=== PATIENT | female | born 1990 | race Caucasian/White ===

== ENCOUNTER 2018-07-13 20:29 | Observation (INO) ==
[2018-07-13 21:26] LABS: Baso # (Auto) 0.1 th/mm3 (0.0-0.2); Eos # (Auto) 0.2 th/mm3 (0.0-0.4); Eos % (Auto) 2.3 % (0.0-4.0); Hematocrit 43.8 % (35.0-46.0); Hemoglobin 14.5 gm/dL (11.6-15.3); Lymph # (Auto) 3.2 th/mm3 (1.0-4.8); Mean Corpuscular Hemoglobin 25.1 pg (27.0-34.0); Mean Platelet Volume 8.4 fL (7.0-11.0); Mono # (Auto) 0.6 th/mm3 (0.0-0.9); Mono % (Auto) 5.6 % (0.0-8.0); Neut # (Auto) 6.5 th/mm3 (1.8-7.7); Neut % (Auto) 61.1 % (16.0-70.0); Platelet Count 415 th/mm3 (150-450); Red Blood Count 5.77 mil/mm3 (4.00-5.30); Red Cell Distribution Width 14.8 % (11.6-17.2); White Blood Count 10.6 th/mm3 (4.0-11.0)
--- NOTE | 2018-07-13 21:39 | XR ---
EXAM DATE: 07/13/2018 9:08 PM EDT AGE/SEX: 28 years / Female INDICATIONS: Chest pain CLINICAL DATA: This is the patient's initial encounter. Patient reports that signs and symptoms have been present for 3 days and indicates a pain score of 0/10. MEDICAL/SURGICAL HISTORY: None. None. COMPARISON: No prior exams available for comparison. FINDINGS: A single AP view of the chest demonstrates the lungs to be symmetrically aerated without evidence of mass, infiltrate or effusion. The cardiomediastinal contours are unremarkable. Osseous structures a re intact. CONCLUSION: Negative examination. Electronically signed by: Sudhakar Avila MD 07/13/2018 9:37 PM EDT
[2018-07-13 21:43] LABS: Activated Partial Thrombo Time 25.7 sec (24.3-30.1)
[2018-07-13 21:50] LABS: Alanine Aminotransferase 15 U/L (10-53); Albumin 3.6 g/dL (3.4-5.0); Anion Gap 5 meq/L (5-15); Aspartate Aminotransferase 17 U/L (15-37); Blood Urea Nitrogen 12 mg/dL (7-18); Calcium 8.7 mg/dL (8.5-10.1); Carbon Dioxide 29.6 meq/L (21.0-32.0); Chloride 106 meq/L (98-107); Glomerular Filtration Rate Greater Than 89 mL/min (>89); Glucose,Random 101 mg/dL (74-106); Potassium 3.9 meq/L (3.5-5.1); Sodium 141 meq/L (136-145)
[2018-07-13 21:54] LABS: Alkaline Phosphatase 98 U/L (45-117); Total Protein 8.2 g/dL (6.4-8.2)
[2018-07-13 21:56] LABS: Amphetamine Screen,Urine Neg (Neg); Barbiturate Screen,Urine Neg (Neg); Cannabinoid Screen,Urine Neg (Neg); Cocaine Screen,Urine Neg (Neg)
[2018-07-13 21:57] LABS: Creatine Kinase 90 U/L (26-192)
[2018-07-13 21:57] LABS: Opiate Screen,Urine Neg (Neg)
[2018-07-13 22:02] LABS: Thyroid Stimulating Hormone 2.54 uIU/mL (0.358-3.740)
--- NOTE | 2018-07-13 22:11 | ED ---
HPI General Chief complaint: Neuro Symptoms/Deficit Stated complaint: numbness on rt side of face Time Seen by Provider: 07/13/18 20:43 Source: patient Limitations: no limitations History of Present Illness HPI narrative: The patient is a 28 year old female who presents to the [facility] emergency department with a history of a headache that she reports began 3 days ago. The patient reports that the headache is present along the right side of the back of the head. She denies having any neck pain or stiffness. She reports that yesterday she then began to have pain in the right side of her jaw and difficulty opening and closing her mouth. She denies having any tooth pain. She denies having any swelling of her gums or drainage into her mouth. She denies having any known fevers. The patient additionally reports that yesterday she noticed having difficulty with numbness and tingling to her right hand while she was sewing. She reports that those symptoms seem to resolve. The patient reports that today in the afternoon she also began to have tingling sensations in her right leg. She denies having any numbness or tingling at this time. She denies having any weakness of her extremities. The patient does however report that this afternoon she began to have chest pain. The patient reports that the chest pain is in the center of her chest. The patient has difficulty describing the character of the pain. She reports having shortness of breath associated with it. She reports that it hurts worse with movement. On review of systems otherwise, the patient denies having any known cough, congestion, neck pain, abdominal pain, vomiting, diarrhea, urinary symptoms, vertigo, facial droop, difficulty with word finding ability, or vision changes. LMP: July 05, 2018. Related Data Home Medications Medication Instructions Recorded Confirmed No Known Home Medications 07/13/18 07/13/18 Allergies Allergy/AdvReac Type Severity Reaction Status Date / Time No Known Allergies Allergy Verified 07/13/18 20:40 Review of Systems ROS: all other systems reviewed are negative [facility] [place] Medical History Medical History Patient denies medical problems (Acute) Surgical History Surgical History No history of previous surgery (Acute) Social History Social History Substance History: No History of Abuse Second Hand Smoke Exposure: No Smoking Status: Never smoker How Often Do You Have a Drink Containing Alcohol: Never Recent Travel in [facility] within the Last 8 Weeks: No Recent Out of Country Travel within the Last 8 Weeks: No Immunization History Tetanus Immunization: Unsure Exam Const General: cooperative, no acute distress and well developed Nutritional Appearance: well nourished Orientation: alert, awake and oriented x3 HENMT Head: normocephalic and atraumatic Nose: no nasal discharge and no epistaxis Face and sinus: other (TTP on the right TMJ, Popping on palpation of the left TMJ with opening) Mouth: moist mucous membranes Throat: posterior oropharynx normal and uvula midline Eyes Sclera: normal sclerae Pupils: PERRL Neck Neck: trachea midline and no JVD Chest Chest: normal inspection of the chest and no tenderness Resp Effort & Inspection: no use of accessory muscles Auscultation: clear to auscultation bilaterally Cardio Rate: regular rate Rhythm: regular rhythm Heart Sounds: no murmurs GI Inspection: non-distended Palpation: soft, no hepatosplenomegaly and nontender Skin General: dry skin (warm) Neuro General: alert, awake, oriented x3 and CN's II-XI intact bilaterally Cranial Nerves: CN's II-XI intact bilaterally Speech: speech normal Motor: strength 5/5 throughout and no movement abnormalities noted Sensory Exam: no sensory deficits noted Extrem General: normal to inspection (2+ pulses in all 4 extremities), no calf tenderness, no clubbing, no cyanosis and no edema Psych Mood: congruent mood Affect: normal affect Judgment: judgment good Course Initial Documented Vital Signs Temperature 99.0 F 07/13/18 20:38 Pulse Rate 86 07/13/18 20:38 Respiratory Rate 18 07/13/18 20:38 Blood Pressure 131/84 07/13/18 20:38 Pulse Oximetry 100 07/13/18 20:38 Last Documented Vital Signs Temperature 97.9 F 07/14/18 00:55 Pulse Rate 65 07/14/18 00:55 Respiratory Rate 18 07/14/18 00:55 Blood Pressure 112/69 07/14/18 00:55 Pulse Oximetry 100 07/14/18 00:55 Medical Decision Making MDM Narrative Medical decision making narrative: During the course of the patient's emergency department visit, the patient's history, examination, and differential diagnosis were reviewed with the patient. The patient was placed on a cardiac rehabilitation program director with oximetry and frequent blood pressure monitoring. The patient had IV access obtained and blood work sent for analysis. A diagnostic evaluation was started regarding the pain, intermittent tingling sensations of her right upper and lower extremity, and chest pain. The patient was initially provided aspirin 324 mg p.o. x1, sublingual nitroglycerin x1. The patient's diagnostic evaluation is remarkable for a white count of 10.6, hemoglobin 14.5, platelets 415 with a normal differential, PT PTT within normal limits. Chemistry is unremarkable, cardiac enzymes within normal limits. Lipase is within normal limits. TSH is within normal limits. Urine drug screen is negative, chest x-ray shows no acute cardiopulmonary disease, CT scan of the brain shows no acute abnormality, CT scan of the C-spine shows no acute abnormality. The patient will be admitted to the chest pain center for rule out serial cardiac enzyme protocol followed by consideration of stress testing as the patient has no primary care physician available for follow-up. The patient's results were discussed with the patient, including the plan of care. I explained that further testing and/ or monitoring is indicated based on the patient's history, examination, and/ or laboratory findings. Therefore, I recommended admission for additional evaluation. The patient expressed understanding and was agreeable with this plan. The patient was admitted to the hospital in stable condition and sent to a bed under the care of the [facility]. Medical Screen Exam Complete: Yes Emergency Medical Condition: Yes Differential Diagnosis Differential Diagnosis: pulmonary embolism, versus Acute coronary syndrome, versus TMJ, versus TIA, versus CVA, versus electrolyte derangements, versus endocrine abnormality Medical Records Medical records reviewed: Yes I reviewed the patient's medical records. Lab Data Lab results reviewed: Yes I reviewed the patient's lab results. Result diagrams: 07/13/18 21:18 07/13/18 21:18 POC Results POC Urine Results Negative Lab Results 07/13/18 07/13/18 07/13/18 Range/Units :18 21:18 21:18 WBC 10.6 (4.0-11.0) th/mm3 RBC 5.77 H (4.00-5.30) mil/mm3 Hgb 14.5 (11.6-15.3) gm/dL Hct 43.8 (35.0-46.0) % MCV 76.0 L (80.0-100.0) fL MCH 25.1 L (27.0-34.0) pg MCHC 33.0 (32.0-36.0) % RDW 14.8 (11.6-17.2) % Plt Count 415 (150-450) th/mm3 MPV 8.4 (7.0-11.0) fL Neut % (Auto) 61.1 (16.0-70.0) % Lymph % (Auto) 30.0 (9.0-44.0) % [place] % (Auto) 5.6 (0.0-8.0) % Eos % (Auto) 2.3 (0.0-4.0) % Baso % (Auto) 1.0 (0.0-2.0) % Neut # (Auto) 6.5 (1.8-7.7) th/mm3 Lymph # (Auto) 3.2 (1.0-4.8) th/mm3 [place] # (Auto) 0.6 (0.0-0.9) th/mm3 Eos # (Auto) 0.2 (0.0-0.4) th/mm3 Baso # (Auto) 0.1 (0.0-0.2) th/mm3 WBC Differential . Differential Comment Auto diff final PT 10.0 (9.8-11.6) sec INR 1.0 Ratio APTT 25.7 (24.3-30.1) sec Sodium (136-145) meq/L Potassium (3.5-5.1) meq/L Chloride (98-107) meq/L Carbon Dioxide (21.0-32.0) meq/L Anion Gap (5-15) meq/L BUN (7-18) mg/dL Creatinine (0.50-1.00) mg/dL Estimated GFR (>89) mL/min Random Glucose (74-106) mg/dL Calcium (8.5-10.1) mg/dL Total Bilirubin (0.2-1.0) mg/dL AST (15-37) U/L ALT (10-53) U/L Alkaline Phosphatase (45-117) U/L Total Creatine Kinase (26-192) U/L Troponin I (0.02-0.05) ng/mL Total Protein (6.4-8.2) g/dL Albumin (3.4-5.0) g/dL Lipase 133 (73-393) U/L TSH 2.540 (0.358-3.740) uIU/mL Urine Opiates Screen (Neg) Ur Barbiturates Screen (Neg) Ur Amphetamines Screen (Neg) U Benzodiazepines Scrn (Neg) Urine Cocaine Screen (Neg) U Cannabinoids Screen (Neg) 07/13/18 07/13/18 07/14/18 Range/Units 21:18 21:30 00:25 WBC (4.0-11.0) th/mm3 RBC (4.00-5.30) mil/mm3 Hgb (11.6-15.3) gm/dL Hct (35.0-46.0) % MCV (80.0-100.0) fL MCH (27.0-34.0) pg MCHC (32.0-36.0) % RDW (11.6-17.2) % Plt Count (150-450) th/mm3 MPV (7.0-11.0) fL Neut % (Auto) (16.0-70.0) % Lymph % (Auto) (9.0-44.0) % [place] % (Auto) (0.0-8.0) % Eos % (Auto) (0.0-4.0) % Baso % (Auto) (0.0-2.0) % Neut # (Auto) (1.8-7.7) th/mm3 Lymph # (Auto) (1.0-4.8) th/mm3 [place] # (Auto) (0.0-0.9) th/mm3 Eos # (Auto) (0.0-0.4) th/mm3 Baso # (Auto) (0.0-0.2) th/mm3 WBC Differential Differential Comment PT (9.8-11.6) sec INR Ratio APTT (24.3-30.1) sec Sodium 141 (136-145) meq/L Potassium 3.9 (3.5-5.1) meq/L Chloride 106 (98-107) meq/L Carbon Dioxide 29.6 (21.0-32.0) meq/L Anion Gap 5 (5-15) meq/L BUN 12 (7-18) mg/dL Creatinine 0.67 (0.50-1.00) mg/dL Estimated GFR Greater than 89 (>89) mL/min Random Glucose 101 (74-106) mg/dL Calcium 8.7 (8.5-10.1) mg/dL Total Bilirubin 0.2 (0.2-1.0) mg/dL AST 17 (15-37) U/L ALT 15 (10-53) U/L Alkaline Phosphatase 98 (45-117) U/L Total Creatine Kinase 90 77 (26-192) U/L Troponin I Less than 0.02 L Less than 0.02 L (0.02-0.05) ng/mL Total Protein 8.2 (6.4-8.2) g/dL Albumin 3.6 (3.4-5.0) g/dL Lipase (73-393) U/L TSH (0.358-3.740) uIU/mL Urine Opiates Screen Neg (Neg) Ur Barbiturates Screen Neg (Neg) Ur Amphetamines Screen Neg (Neg) U Benzodiazepines Scrn Neg (Neg) Urine Cocaine Screen Neg (Neg) U Cannabinoids Screen Neg (Neg) Imaging Data Radiologist's impression: Cervical Spine CT 07/13/18 21:08 CONCLUSION: 1. No acute findings on cervical spine CT. Chest X-Ray 07/13/18 21:08 CONCLUSION: Negative examination. Head CT 07/13/18 21:08 CONCLUSION: 1. Negative CT Head non contrast. . ECG Data Attestation: I personally reviewed and interpreted this ECG as follows: Interpretation: The patient had a EKG done on arrival. The patient's EKG revealed no evidence of ST segment elevation. The patient was in a sinus rhythm with a normal rate. Discharge Plan Discharge Disposition Patient Disposition: 30 Still Patient Discharge Details Diagnosis: Chest pain, rule out acute myocardial infarction, Jaw pain Physicians Team ED Provider: Angie Rincon Primary Care Provider: Primary Care Taylor Clark Attending Provider: Martin Foster Discharge Interventions Interventions: ED Discharge Assessment Last Done: 07/14/18 00:51 Vital Signs Last Done: 07/13/18 23:46 Status ED Status: Left Department Discharge Information Discharge Date/Time: 07/14/18 00:51
--- NOTE | 2018-07-13 22:45 | CT ---
EXAM DATE: 07/13/2018 9:12 PM EDT AGE/SEX: 28 years / Female INDICATIONS: Headache, numbness to right side of face. CLINICAL DATA: This is the patient's initial encounter. Patient reports that signs and symptoms have been present for 1 day and indicates a pain score of 6/10. MEDICAL/SURGICAL HISTORY: None. None. RADIATION DOSE: 32.14 CTDI (mGy) COMPARISON: No prior exams available for comparison. TECHNIQUE: CT of the head without contrast. Using automated exposure control and adjustment of the mA and/or kV according to patient size, radiation dose was kept as low as reasonably achievable to ob tain optimal diagnostic quality images. DICOM format image data is available electronically for revi ew and comparison. FINDINGS: Cerebrum: The ventricles are normal for age. No evidence of midline shift, mass lesion, hemorrhage or acute infarction. No extraaxial fluid collections are seen. Posterior Fossa: The cerebellum and brainstem are intact. The 4th ventricle is midline. The cerebe llopontine angle is unremarkable. Extracranial: The visualized portion of the orbits is intact. Skull: The calvaria is intact. No evidence of skull fracture. CONCLUSION: 1. Negative CT Head non contrast. . Electronically signed by: Sudhakar Avila MD 07/13/2018 10:44 PM EDT
--- NOTE | 2018-07-13 23:00 | CT ---
EXAM DATE: 07/13/2018 9:12 PM EDT AGE/SEX: 28 years / Female INDICATIONS: Right sided facial numbness. CLINICAL DATA: This is the patient's initial encounter. Patient reports that signs and symptoms have been present for 1 day and indicates a pain score of 6/10. MEDICAL/SURGICAL HISTORY: None. None. RADIATION DOSE: 19.39 CTDI (mGy) COMPARISON: No prior exams available for comparison. TECHNIQUE: Contiguous axial images were obtained using helical multirow detector technique. The vol umetric data was post-processed with multiplanar reconstruction in oblique axial, sagittal, and coron al planes. Using automated exposure control and adjustment of the mA and/or kV according to patient s ize, radiation dose was kept as low as reasonably achievable to obtain optimal diagnostic quality patricio ges. DICOM format image data is available electronically for review and comparison. FINDINGS: There is no fracture or spondylolisthesis. No significant bony canal or foraminal stenosis. No prever tebral soft tissue swelling. CONCLUSION: 1. No acute findings on cervical spine CT. Electronically signed by: Sudhakar Avila MD 07/13/2018 10:58 PM EDT
[2018-07-13] MEDS ORDERED: Sod Chloride 0.9% Inj 1,000 ML IV.CONT SCH (23:30)
[2018-07-14] MEDS ORDERED: Acetaminophen 500 MG Tablet PO PRN (00:09)
[2018-07-14] MEDS ORDERED: Sod Chloride 0.9% Inj 1,000 ML IV.CONT SCH (00:15)
[2018-07-14 00:59] LABS: Creatine Kinase 77 U/L (26-192)
[2018-07-14 03:39] VITALS: PULSE 74
[2018-07-14 04:15] LABS: Creatine Kinase 75 U/L (26-192)
[2018-07-14 08:19] VITALS: BP 102/61; RESP 16; TEMP 98; O2SAT 96
--- NOTE | 2018-07-14 08:56 | P.HPCA ---
History of Present Illness Primary Care Physician: No Primary Care Physician Chief Complaint: Right jaw pain History of Present Illness: This is a 28-year-old Nepali-speaking female that presents to ED for evaluation of right-sided jaw pain. It has been going on for couple days, began while she was eating. Hurts to open and close her mouth. She also is complaining of numbness and tingling in her right hand while doing sewing, she mentioned this to the ER provider however cannot recall this and we discussed with her. Her history was obtained with [facility] system. She denies having chest discomfort. Denies any other type of pain other than to jaw pain. - Diagnosis (1) TMJ (sprain of temporomandibular joint) Review of Systems General: Patient denies fevers, chills, and recent travel. HEENT: Complains of right-sided jaw pain, worse when opening closing her mouth. Patient denies headache, sore throat, difficulty swallowing. Cardiovascular: Denies chest discomfort as mentioned above. Denies sensation of heart beating rapidly or irregularly. No syncope. Respiratory: Denies shortness of breath or inspirational chest discomfort. Denies coughing wheezing or hemoptysis. GI: Patient denies nausea, vomiting, diarrhea, abdominal pain, bloody stools. Musculoskeletal: Patient denies joint pain or edema. Denies calf pain or edema. Neurovascular: Patient denies numbness, tingling, weakness in extremities. Denies headache. Endocrine: Denies polyuria and polydipsia. Hematologic: Denies easy bruising. Skin: Denies rash or itching. PMFSH - History History Provided By: Family Member - Medical History Medical History: Medical History (Last Reviewed 07/13/18 @ 22:11 by Angie Rincon MD) Patient denies medical problems - Surgical History Surgical History: Surgical History (Last Reviewed 07/13/18 @ 22:11 by Angie Rincon MD) No history of previous surgery - Tobacco History Second Hand Smoke Exposure: No Smoking Status: Never smoker - Alcohol History How Often Do You Have a Drink Containing Alcohol: Never - Substance Use History Substance History: No History of Abuse - Travel History Recent Travel in the [place] Within the Last 8 Weeks: No Recent Travel Out of the Country Within the Last 8 Weeks: No - Immunization History Tetanus Immunization: Unsure Medications and Allergies Active Medications: Active Medications Acetaminophen (Tylenol) 500 mg PO Q4H PRN PRN Reason: HEADACHE Sodium Chloride (Ns Inj) 1,000 mls @ 100 mls/hr IV.CONT .Q10H KAROL Last Admin: 07/14/18 01:07 Dose: 100 mls/hr Sodium Chloride (Ns Inj) 1,000 mls @ 100 mls/hr IV.CONT .Q10H KAROL Last Admin: 07/14/18 01:23 Dose: Not Given Sodium Chloride (Ns Flush) 2 ml IV.FLUSH BID KAROL Sodium Chloride (Ns Flush) 2 ml IV.FLUSH PRN PRN PRN Reason: FLUSH AFTER USING IV ACCESS Allergies Allergy/AdvReac Type Severity Reaction Status Date / Time No Known Allergies Allergy Verified 07/13/18 20:40 Home Medications Medication Instructions Recorded Confirmed Type No Known Home Medications 07/13/18 07/13/18 History Exam Vital signs: Vital Signs 07/13/18 20:38 07/13/18 20:51 07/13/18 21:22 Temperature 99.0 F Pulse Rate 86 92 H 90 Respiratory Rate 18 17 Blood Pressure 131/84 125/82 Pulse Oximetry 100 100 07/13/18 23:46 07/14/18 00:55 07/14/18 03:38 Temperature 97.9 F 97.5 F L Pulse Rate 77 65 74 Respiratory Rate 17 18 20 Blood Pressure 135/98 H 112/69 97/56 L Pulse Oximetry 100 100 100 07/14/18 08:16 Temperature 98.0 F Pulse Rate 74 Respiratory Rate 16 Blood Pressure 102/61 Pulse Oximetry 96 Intake & Output 07/13/18 07/14/18 07/14/18 18:59 06:59 18:59 Weight 65.771 kg Other: # Voids 2 Weight On Admission 65.771 kg Narrative: GENERAL: This is a well-nourished, well-developed patient, in no apparent distress. Patient speaks in clear complete sentences. Patient is pleasant. There is pain with opening and closure of the mouth. Tenderness in palpating the right TMJ area. This is the discomfort that she has been having. HEENT: Head is atraumatic and normocephalic. Neck is supple without lymphadenopathy and trachea is midline. No JVD or carotid bruits. CARDIOVASCULAR: Regular rate and rhythm without murmurs, gallops, or rubs. RESPIRATORY: Clear to auscultation. Breath sounds equal bilaterally. No wheezes , rales, or rhonchi. Chest wall is nontender. No use of accessory muscles. GASTROINTESTINAL: Abdomen is nontender, nondistended. Abdomen soft. No obvious pulsatile mass or bruit. No CVA tenderness. Strong femoral pulses bilaterally. Normal bowel sounds in all quadrants. MUSCULOSKELETAL: Patient is moving upper and lower extremities freely. No calf tenderness or edema, no Homans sign. Strong pulses in upper and lower extremities. NEUROLOGICAL: Patient is alert and oriented. Cranial nerves 2-12 are grossly intact. No focal deficits and speech is clear. SKIN: No rash and turgor is normal. Results 07/13/18 21:07/13/18 21:18 Cardiac Enzymes 07/13/18 07/14/18 07/14/18 Range/Units : 00:25 02:52 AST 17 (15-37) U/L Troponin I Less than 0.02 L Less than 0.02 L Less than 0.02 L (0.02-0.05) ng/mL Coagulation 07/13/18 Range/Units 21:18 PT 10.0 (9.8-11.6) sec APTT 25.7 (24.3-30.1) sec CBC 07/13/18 Range/Units 21:18 WBC 10.6 (4.0-11.0) th/mm3 RBC 5.77 H (4.00-5.30) mil/mm3 Hgb 14.5 (11.6-15.3) gm/dL Hct 43.8 (35.0-46.0) % Plt Count 415 (150-450) th/mm3 Neut # (Auto) 6.5 (1.8-7.7) th/mm3 Lymph # (Auto) 3.2 (1.0-4.8) th/mm3 [place] # (Auto) 0.6 (0.0-0.9) th/mm3 Eos # (Auto) 0.2 (0.0-0.4) th/mm3 Baso # (Auto) 0.1 (0.0-0.2) th/mm3 Comprehensive Metabolic Panel 07/13/18 Range/Units 21:18 Sodium 141 (136-145) meq/L Potassium 3.9 (3.5-5.1) meq/L Chloride 106 (98-107) meq/L Carbon Dioxide 29.6 (21.0-32.0) meq/L BUN 12 (7-18) mg/dL Creatinine 0.67 (0.50-1.00) mg/dL Calcium 8.7 (8.5-10.1) mg/dL AST 17 (15-37) U/L ALT 15 (10-53) U/L Alkaline Phosphatase 98 (45-117) U/L Total Protein 8.2 (6.4-8.2) g/dL Albumin 3.6 (3.4-5.0) g/dL Intake and Output 07/13/18 07/14/18 07/14/18 22:59 06:59 14:59 Other: # Voids 2 Weight 66 kg 65.771 kg Weight On Admission 65.771 kg - Imaging and Cardiology Imaging: Impressions Cervical Spine CT 07/13/18 21:08 CONCLUSION: 1. No acute findings on cervical spine CT. Chest X-Ray 07/13/18 21:08 CONCLUSION: Negative examination. Head CT 07/13/18 21:08 CONCLUSION: 1. Negative CT Head non contrast. . EKG interpretations - EKG EKG shows: sinus rhythm (EKGs are sinus rhythm without significant ST segment depressions or elevations.) Caprini VTE Risk Assessment Caprini VTE Risk Assessment: No/Low Risk (score <= 1) Caprini Risk Assessment Model: Point Value = 1 Point Value = 2 Point Value = 3 Point Value = 5 Age 41-60 Minor surgery BMI > 25 kg/m2 Swollen legs Varicose veins or History of unexplained or recurrent spontaneous Oral contraceptives or hormone replacement Sepsis (< 1 month) Serious lung disease, including pneumonia (< 1 month) Abnormal pulmonary function Acute myocardial infarction Congestive heart failure (< 1 month) History of inflammatory bowel disease Medical patient at bed rest Age 61-74 Arthroscopic surgery Major open surgery (> 45 min) Laparoscopic surgery (> 45 min) Malignancy Confined to bed (> 72 hours) Immobilizing plaster cast Central venous access Age >= 75 History of VTE Family history of VTE Factor V Leiden Prothrombin [id number] Lupus anticoagulant Anticardiolipin antibodies Elevated serum homocysteine Heparin-induced thrombocytopenia Other congenital or acquired thrombophilia Stroke (< 1 month) Elective arthroplasty Hip, pelvis, or leg fracture Acute spinal cord injury (< 1 month) Prophylaxis Regimen: Total Risk Factor Score Risk Level Prophylaxis Regimen 0-1 Low Early ambulation 2 Moderate Order ONE of the following: *Sequential Compression Device (SCD) *Heparin 5000 units SQ BID 3-4 Higher Order ONE of the following medications: *Heparin 5000 units SQ TID *Enoxaparin/Lovenox 40 mg SQ daily (WT < 150 kg, CrCl > 30 mL/min) *Enoxaparin/Lovenox 30 mg SQ daily (WT < 150 kg, CrCl > 10-29 mL/min) *Enoxaparin/Lovenox 30 mg SQ BID (WT < 150 kg, CrCl > 30 mL/min) AND/OR *Sequential Compression Device (SCD) 5 or more Highest Order ONE of the following medications: *Heparin 5000 units SQ TID (Preferred with Epidurals) *Enoxaparin/Lovenox 40 mg SQ daily (WT < 150 kg, CrCl > 30 mL/min) *Enoxaparin/Lovenox 30 mg SQ daily (WT < 150 kg, CrCl > 10-29 mL/min) *Enoxaparin/Lovenox 30 mg SQ BID (WT < 150 kg, CrCl > 30 mL/min) AND *Sequential Compression Device (SCD) Assessment and Plan - Assessment (1) TMJ (sprain of temporomandibular joint) Code(s): S03.40XA - Sprain of jaw, unspecified side, initial encounter Status : Acute - Plan * TMJ: Patient was admitted to chest pain center to evaluate her discomfort. She seen by outbound sales professional Dr. Beka Pang in chest pain center. Symptoms are not all related to cardiac. She has been advised to use aspirin or ibuprofen. Ice. Patient is stable at this time. She is agreeable to this plan. H&P: Quality - VTE Deep Vein Thrombosis/Pulmonary Embolism Present on Admission: No
--- NOTE | 2018-07-14 14:03 | ECG ---
Date Performed: 07/13/2018 Time Performed: 21:16:17 PTAGE: 28 years EKG: Sinus rhythm NORMAL ECG NO PREVIOUS TRACING DOCTOR: Beka Pang Interpretating Date/Time 07/22/2018 13:25:12
--- NOTE | 2018-07-14 14:05 | ECG ---
Date Performed: 07/14/2018 Time Performed: 00:26:16 PTAGE: 28 years EKG: Sinus rhythm NONSPECIFIC T-WAVE ABNORMALITY BORDERLINE ECG PREVIOUS TRACING : 07/13/2018 21.16 Since previous tracing, no significant change noted DOCTOR: Beka Pang Interpretating Date/Time 07/14/2018 14:02:26
--- NOTE | 2018-07-14 14:06 | ECG ---
Date Performed: 07/14/2018 Time Performed: 03:45:27 PTAGE: 28 years EKG: Sinus rhythm BORDERLINE ECG PREVIOUS TRACING : 07/14/2018 00.26 Since previous tracing, no significant change noted DOCTOR: Beka Pang Interpretating Date/Time 07/14/2018 14:04:02
== END 2018-07-14 11:20 | disposition home or self-care (01) ==
LOC: NEPE 20:29 → NEDA 20:29 → NEPGCP 07-14 00:48
PROVIDERS: ADMIT Internal Medicine Interventional Cardiology; ATTEND Internal Medicine Interventional Cardiology
DX: M26.621 Arthralgia of right temporomandibular joint; R07.9 Chest pain, unspecified; S03.40XA Sprain of jaw, unspecified side, initial encounter